=== PATIENT | female | born 1985 | race Two or more races ===

== ENCOUNTER 2018-09-29 17:13 | Inpatient (IN) | payer OTHER, MEDICAID ==
[~2018-09-29] VITALS: Ht 164.6 cm; Wt 105.0 kg
[2018-09-29 17:33] VITALS: BP 124/84
[2018-09-29] MEDS: D5%-LACTATED RINGERS 1,000 ML IV SCH (20:19)
[2018-09-29] MEDS ORDERED: OXYTOCIN 30U/ 0.9% NaCL 500ML 500 ML IV ONE (20:19)
[2018-09-29] MEDS ORDERED: OXYTOCIN 30U/ 0.9% NaCL 500ML 500 ML IV PRN (20:19)
[2018-09-29] MEDS ORDERED: FENTANYL/BUPIV./NS/PF 250 ML EPIDCONT SCH (20:25)
[2018-09-29] MEDS ORDERED: OXYTOCIN 30U/ 0.9% NaCL 500ML 500 ML ONE (20:27)
[2018-09-29] MEDS ORDERED: MISOPROSTOL 200 MCG TABLET ONE (20:27)
[2018-09-29] MEDS ORDERED: LIDOCAINE 1%, 20ML ONE (20:27)
[2018-09-29] MEDS ORDERED: TERBUTALINE 1 MG/ML, 1ML IVPush PRN (20:30)
[2018-09-29] MEDS ORDERED: FENTANYL PF 100 MCG/2ML IVPush PRN (20:30)
[2018-09-29] MEDS ORDERED: FENTANYL PF 100 MCG/2ML IV PRN (20:30)
[2018-09-29] MEDS ORDERED: ONDANSETRON 2MG/ML, 2ML IVPush PRN (20:30)
[2018-09-29 20:57] LABS: BASOPHILS # (AUTO) 0.03 x10^3/uL (0-0.1); BASOPHILS % (AUTO) 0 % (0-1); EOSINOPHILS # (AUTO) 0.04 x10^3/uL (0-0.4); EOSINOPHILS % (AUTO) 1 % (1-7); LYMPHOCYTES # (AUTO) 2.47 x10^3/uL (1-3.4); LYMPHOCYTES % (AUTO) 27 % (22-44); MD NO; MEAN CORPUSCULAR HEMOGLOBIN 30.7 pg (27.0-34.8); MEAN CORPUSCULAR HGB CONC 34.6 g/dL (32.4-35.8); MEAN CORPUSCULAR VOLUME 88.5 fL (80-100); MEAN PLATELET VOLUME 8.2 fL (7.4-10.4); MONOCYTES # (AUTO) 0.46 x10^3/uL (0.2-0.8); MONOCYTES % (AUTO) 5 % (2-9); NEUTROPHILS # (AUTO) 6.29 x10^3/uL (1.8-6.8); NEUTROPHILS % (AUTO) 68 % (42-75); PLATELET COUNT 269 x10^3/uL (130-400); RED BLOOD COUNT 4.11 x10^6/uL (3.82-5.3); RED CELL DISTRIBUTION WIDTH 13.7 % (9.6-15.2)
[2018-09-29] MEDS: LACTATED RINGERS 1,000 ML IV SCH (21:12)
[2018-09-30] MEDS: D5%-LACTATED RINGERS 1,000 ML IV SCH ×2 (04:19→12:19)
[2018-09-30] MEDS ORDERED: NEWBORN KIT ONE (05:10)
[2018-09-30] MEDS: LACTATED RINGERS 1,000 ML IV SCH ×4 (05:21→13:21)
[2018-09-30] MEDS ORDERED: FENTANYL/BUPIV./NS/PF 250 ML EPIDCONT SCH (05:21)
[2018-09-30] MEDS ORDERED: FENTANYL/BUPIV./NS/PF 250 ML EPIDCONT ONE (05:25)
[2018-09-30] MEDS ORDERED: BUPIVACAINE 0.25% ONE ×2 (05:25→11:50)
[2018-09-30] MEDS ORDERED: EPHEDRINE 50 MG/ML, 1ML IVPush PRN (05:30)
[2018-09-30] MEDS ORDERED: NALOXONE 0.4 MG/ML, 1ML IVPush PRN (05:30)
[2018-09-30] MEDS ORDERED: LACTATED RINGERS 1,000 ML IVBOLUS PRN (05:30)
[2018-09-30] MEDS: OXYTOCIN 30U/ 0.9% NaCL 500ML 500 ML IV SCH ×2 (12:49→22:49)
[2018-09-30] MEDS ORDERED: IBUPROFEN 600 MG TABLET ONE (14:39)
[2018-09-30] MEDS ORDERED: OXYTOCIN 30U/ 0.9% NaCL 500ML 500 ML ONE (14:39)
[2018-09-30] MEDS: IBUPROFEN 200 MG TABLET PO PRN ×2 (14:50→20:51)
[2018-09-30] MEDS ORDERED: DOCUSATE 100 MG CAPSULE ONE (16:09)
[2018-09-30 16:30] VITALS: BP 128/76
[2018-09-30] MEDS ORDERED: DOCUSATE 100 MG CAPSULE PO PRN (16:30)
[2018-09-30 19:46] VITALS: BP 111/72
[2018-09-30 20:56] LABS: BASOPHILS # (AUTO) 0.02 x10^3/uL (0-0.1); BASOPHILS % (AUTO) 0 % (0-1); EOSINOPHILS # (AUTO) 0.01 x10^3/uL (0-0.4); EOSINOPHILS % (AUTO) 0 % (1-7); LYMPHOCYTES % (AUTO) 18 % (22-44); MD NO; MEAN CORPUSCULAR HGB CONC 33.7 g/dL (32.4-35.8); MEAN CORPUSCULAR VOLUME 89.1 fL (80-100); MEAN PLATELET VOLUME 8.1 fL (7.4-10.4); MONOCYTES # (AUTO) 0.63 x10^3/uL (0.2-0.8); MONOCYTES % (AUTO) 6 % (2-9); NEUTROPHILS # (AUTO) 7.76 x10^3/uL (1.8-6.8); NEUTROPHILS % (AUTO) 75 % (42-75); PLATELET COUNT 221 x10^3/uL (130-400); RED BLOOD COUNT 3.47 x10^6/uL (3.82-5.3); RED CELL DISTRIBUTION WIDTH 13.8 % (9.6-15.2)
[2018-10-01 00:10] VITALS: BP 119/76
[2018-10-01] MEDS: IBUPROFEN 200 MG TABLET PO PRN ×3 (02:43→12:49)
[2018-10-01 04:50] VITALS: BP 118/74
[2018-10-01] MEDS ORDERED: DIPH,PERTUSS(ACELL),TET VAC/PF NC IM-VACC ONE (06:30)
[2018-10-01 08:00] VITALS: BP 110/69
[2018-10-01] MEDS ORDERED: PRENATAL VIT/IRON/FA 1 EACH TABLET PO SCH (09:00)
[2018-10-01] MEDS ORDERED: IBUP-1222 PO (09:48)
[2018-10-01 12:00] VITALS: BP 127/83
== END 2018-10-01 16:50 | disposition home or self-care (01) | DRG 807 ==
LOC: LDOP 17:13 → LDIP 20:09 → 2NW 09-30 16:20
PROVIDERS: ADMIT Obstetrics & Gynecology; ATTEND Obstetrics & Gynecology
PROC: 10907ZC Drainage of Amniotic Fluid, Therapeutic from Products of Conception, Via Natural or Artificial Opening (ICD-10-PCS; principal; 2018-09-30)
PROC: 10E0XZZ Delivery of Products of Conception, External Approach (ICD-10-PCS; 2018-09-30)
PROC: 3E0R3BZ Introduction of Anesthetic Agent into Spinal Canal, Percutaneous Approach (ICD-10-PCS; 2018-09-30)
PROC: 00HU33Z Insertion of Infusion Device into Spinal Canal, Percutaneous Approach (ICD-10-PCS; 2018-09-30)
DX: O80 Encounter for full-term uncomplicated delivery (principal); Z37.0 Single live birth; Z3A.40 40 weeks gestation of pregnancy; Z91.018 Allergy to other foods
CPT/HCPCS: 36415; 76819; 85025; 86850; 86900; 90715; G0378; J2590; J7120